=== PATIENT | male | born 1985 | race Hispanic/Latino ===

== ENCOUNTER 2019-05-25 07:22 | Inpatient (IN) | payer BC ==
[2019-05-25] VITALS (12 sets, daily range): BP systolic 97–130; BP diastolic 68–89
[~2019-05-25] VITALS: Ht 167.6 cm; Wt 64.4 kg
[2019-05-25 08:23] LABS: BASOPHILS % (AUTO) 0.2 % (0.0-5.0); EOSINOPHILS % (AUTO) 0.5 % (0.0-8.0); HEMATOCRIT 49.1 % (42-54); LYMPHOCYTES % (AUTO) 12.5 % (21.0-51.0); MEAN CORPUSCULAR HEMOGLOBIN 30.2 pg (27.0-33.0); MEAN CORPUSCULAR HGB CONC 34.4 g/dL (32.0-36.0); MEAN CORPUSCULAR VOLUME 87.8 fL (79-99); MONOCYTES % (AUTO) 8.5 % (3.0-13.0); NEUTROPHILS % (AUTO) 78.3 % (40.0-77.0); PLATELET COUNT (AUTO) 299 K/uL (130-400); RED BLOOD CELL COUNT(AUTO) 5.59 MIL/uL (4.50-6.20); RED CELL DISTRIBUTION WIDTH 13.1 % (11.0-15.5); WHITE BLOOD COUNT (AUTO) 13.8 K/uL (4.8-10.8)
[2019-05-25 08:30] LABS: CREATININE 1.2 mg/dL (0.5-1.5)
[2019-05-25 08:35] LABS: ALBUMIN 3.1 g/dL (3.5-5.0); BILIRUBIN,TOTAL 0.3 mg/dL (0.2-1.0); MAGNESIUM 3.1 mg/dL (1.80-2.40); PHOSPHORUS 4.5 mg/dL (2.5-4.9)
[2019-05-25] MEDS ORDERED: SODIUM CHLORIDE 0.9% 1000ML 1,000 ML IV ONE (09:01)
[2019-05-25] MEDS ORDERED: MESA0.37 PO (09:06)
[2019-05-25] MEDS ORDERED: CHOL3000 PO (09:06)
[2019-05-25] MEDS ORDERED: PROPOFOL 10 MG/ML 20ML VIAL IV ONE (09:38)
[2019-05-25] MEDS ORDERED: LIDOCAINE HCL-MPF 1% 2ML VIAL IJ PRN (10:00)
[2019-05-25] MEDS ORDERED: POTASSIUM CHLORIDE 20MEQ/100ML 100 ML IV PRN (10:00)
--- NOTE | 2019-05-25 10:30 | NUR ---
REPORT REPORT GIVEN TO JEANA COFFMAN RN
--- NOTE | 2019-05-25 10:40 | NUR ---
PATIENT PATIENT TRANSFERED TO ROOM 303, PT AWAKE AND ALERT NO DISTRESS NOTED.
[2019-05-25] MEDS: SODIUM CHLORIDE 0.9% 1000ML 1,000 ML IV SCH (10:45)
--- NOTE | 2019-05-25 10:50 | NUR ---
REPORT RECEIVED AND TO ROOM NOW, AWAKE, IV FLUIDS IN PROGRESS, NO C/O VOICED AT THIS TIME. BLAND DIET ORDERED AT THIS TIME.
[2019-05-25] MEDS ORDERED: METHYLPREDNISOLONE SOD SUCC 40MG/ML 1ML IVP SCH (11:45)
[2019-05-25] MEDS: METHYLPREDNISOLONE SOD SUCC 40MG/ML 1ML IVP SCH ×2 (13:31→18:17)
[2019-05-25] MEDS: POTASSIUM CHLORIDE 10% ELIXIR 20 MEQ/15 ML UDCUP PO PRN ×2 (16:42→18:17)
--- NOTE | 2019-05-25 17:00 | NUR ---
IN TO SEE PT.ORDERS ENTERED.
--- NOTE | 2019-05-25 18:27 | NUR ---
HAS HAD 2PO DOSES OF kt ALMOST COMPLETED 1 IV BUT WAS HURTING AND DIDN'T WANT TO CONTINUE IV DOSE. STOOL SPECIMEN ALSO COLLECTED EARLIER AND SENT TO LAB.
[2019-05-25] MEDS ORDERED: MORPHINE SULFATE 2 MG/ML 1ML SYG IVP PRN (19:00)
[2019-05-25] MEDS ORDERED: ONDANSETRON HCL 4 MG/2 ML VIAL IVP PRN (19:00)
[2019-05-25] MEDS: NITAZOXANIDE 500 MG TAB PO SCH (20:42)
[2019-05-26] MEDS: METHYLPREDNISOLONE SOD SUCC 40MG/ML 1ML IVP SCH ×3 (03:24→18:52)
[2019-05-26 03:53] VITALS: BP 124/80
[2019-05-26 05:04] LABS: BASOPHILS % (AUTO) 0.1 % (0.0-5.0); HEMATOCRIT 42.4 % (42-54); LYMPHOCYTES % (AUTO) 6.2 % (21.0-51.0); MEAN CORPUSCULAR HGB CONC 35.2 g/dL (32.0-36.0); MEAN CORPUSCULAR VOLUME 88.2 fL (79-99); NEUTROPHILS % (AUTO) 90.7 % (40.0-77.0); PLATELET COUNT (AUTO) 275 K/uL (130-400); RED BLOOD CELL COUNT(AUTO) 4.81 MIL/uL (4.50-6.20); RED CELL DISTRIBUTION WIDTH 13.2 % (11.0-15.5); WHITE BLOOD COUNT (AUTO) 14.1 K/uL (4.8-10.8)
[2019-05-26 05:28] LABS: ALBUMIN 2.7 g/dL (3.5-5.0); BILIRUBIN,TOTAL 0.3 mg/dL (0.2-1.0); CREATININE 1.1 mg/dL (0.5-1.5); POTASSIUM 3.8 mmol/L (3.5-5.1); TOTAL PROTEIN, SERUM 6.9 g/dL (6.0-8.3)
[2019-05-26] MEDS: POTASSIUM CHLORIDE 10% ELIXIR 20 MEQ/15 ML UDCUP PO PRN (06:22)
[2019-05-26 07:30] VITALS: BP 128/84
[2019-05-26] MEDS: NITAZOXANIDE 500 MG TAB PO SCH ×2 (10:05→21:14)
[2019-05-26 11:00] VITALS: BP 114/77
[2019-05-26] MEDS ORDERED: DIATR MEGLU/DIATRIZOATE SODIUM 30 ML BOTTLE ONE (11:27)
--- NOTE | 2019-05-26 14:14 | NUR ---
[facility] MET PATIENT W MOM AT BEDSIDE, AAOX3, INDP, EMPLOYED ACTIVE NO DME, DCP HOME NO DCNEEDS Addendum: 05/26/19 at 1706 by KANA FOFANA RN CM Amended: Links added.
[2019-05-26] MEDS ORDERED: IOHEXOL-350 75 ML VIAL IV ONE (14:41)
[2019-05-26 16:00] VITALS: BP 113/70
[2019-05-26] MEDS: POTASSIUM CHLORIDE 20 MEQ ERTAB PO PRN (16:17)
[2019-05-26] MEDS: SODIUM CHLORIDE 0.9% 1000ML 1,000 ML IV SCH (16:20)
[2019-05-26 19:35] VITALS: BP 127/69
[2019-05-27] VITALS: BP 108/64
[2019-05-27] MEDS ORDERED: TEMAZEPAM 7.5 MG CAPSULE PO PRN
[2019-05-27] MEDS: SODIUM CHLORIDE 0.9% 1000ML 1,000 ML IV SCH ×3 (03:22→22:45)
[2019-05-27] MEDS: METHYLPREDNISOLONE SOD SUCC 40MG/ML 1ML IVP SCH ×3 (03:22→21:16)
[2019-05-27 04:00] VITALS: BP 116/66
[2019-05-27 04:51] LABS: HEMATOCRIT 37.7 % (42-54); MEAN CORPUSCULAR HEMOGLOBIN 30.4 pg (27.0-33.0); MEAN CORPUSCULAR HGB CONC 34.4 g/dL (32.0-36.0); MEAN CORPUSCULAR VOLUME 88.3 fL (79-99); PLATELET COUNT (AUTO) 290 K/uL (130-400); RED BLOOD CELL COUNT(AUTO) 4.26 MIL/uL (4.50-6.20); WHITE BLOOD COUNT (AUTO) 15.7 K/uL (4.8-10.8)
[2019-05-27 05:05] LABS: ALBUMIN 2.5 g/dL (3.5-5.0); BILIRUBIN,TOTAL 0.3 mg/dL (0.2-1.0); CREATININE 0.9 mg/dL (0.5-1.5); CRP QUANTITATIVE 2.7 mg/L (0.00-9.0); PHOSPHORUS 3.8 mg/dL (2.5-4.9); POTASSIUM 3.7 mmol/L (3.5-5.1); TOTAL PROTEIN, SERUM 6.2 g/dL (6.0-8.3)
[2019-05-27 07:49] VITALS: BP 127/75
[2019-05-27] MEDS: ENOXAPARIN SODIUM 40 MG/0.4 ML SYRINGE SQ SCH (09:00)
[2019-05-27] MEDS: FAMOTIDINE/PF 20 MG/2 ML VIAL IV SCH ×2 (09:34→21:16)
[2019-05-27] MEDS: NITAZOXANIDE 500 MG TAB PO SCH ×2 (09:34→21:15)
[2019-05-27 11:00] VITALS: BP 117/71
--- NOTE | 2019-05-27 11:00 | NUR ---
PATIENT ANTICIPATING DISCHARGE TODAY WAITING FOR ROUNDING
[2019-05-27] MEDS: POTASSIUM CHLORIDE 20 MEQ ERTAB PO PRN ×2 (13:44→17:36)
[2019-05-27 15:45] VITALS: BP 115/70
[2019-05-27 20:09] VITALS: BP 117/70
[2019-05-27] MEDS ORDERED: METHYLPREDNISOLONE SOD SUCC 40MG/ML 1ML IVP SCH (21:00)
[2019-05-28 00:10] VITALS: BP 104/66
[2019-05-28] MEDS: SODIUM CHLORIDE 0.9% 1000ML 1,000 ML IV SCH (02:24)
[2019-05-28 04:00] VITALS: BP 109/76
--- NOTE | 2019-05-28 05:29 | NUR ---
PATIENT UPDATE Slept well overnight, no complaints of any abdominal pain, no nausea nor vomiting. No diarrhea, bowel movement from yesterday starting to get firm.For possible discharge to home today.
[2019-05-28 07:55] VITALS: BP 114/73
[2019-05-28] MEDS: ENOXAPARIN SODIUM 40 MG/0.4 ML SYRINGE SQ SCH (09:00)
[2019-05-28] MEDS: FAMOTIDINE/PF 20 MG/2 ML VIAL IV SCH (10:19)
[2019-05-28] MEDS: METHYLPREDNISOLONE SOD SUCC 40MG/ML 1ML IVP SCH (10:19)
[2019-05-28] MEDS: NITAZOXANIDE 500 MG TAB PO SCH (10:20)
--- NOTE | 2019-05-28 12:30 | NUR ---
patient given discharge instructions and verbalized understanding , iv removed with catheter intact , reviewed medications and follow-up appointment , no question or concerns at this time, patient will call when finished lunch for wheelchair to lobby
== END 2019-05-28 11:45 | disposition home or self-care (01) | DRG 372 ==
LOC: DAH 07:22 → ENDO 07:22 → OBSVTOIN 07:23 → 3AH 07:23
PROVIDERS: ADMIT Internal Medicine; ATTEND Internal Medicine
PROC: 0DBB8ZX Excision of Ileum, Via Natural or Artificial Opening Endoscopic, Diagnostic (ICD-10-PCS; principal; 2019-05-25)
PROC: 0DBE8ZX Excision of Large Intestine, Via Natural or Artificial Opening Endoscopic, Diagnostic (ICD-10-PCS; 2019-05-25)
DX: A04.72 Enterocolitis due to Clostridium difficile, not specified as recurrent (principal); E87.1 Hypo-osmolality and hyponatremia; K51.90 Ulcerative colitis, unspecified, without complications; E87.6 Hypokalemia
CPT/HCPCS: 36415; 45380; 74177; 80053; 83735; 83993; 84100; 84145; 85025; 85027; 86140; 86644; 86645; 87040; 87046; 87177; 87507; A4606; G0378; J1650; J2704; J2920; J3480; J3490; J7030; Q9963; Q9967